=== PATIENT | female | born 1985 | race Asian ===

== ENCOUNTER → 2024-06-05 15:23 | Outpatient (REF) | payer OTHER, SELFPAY | LOC: HWRAD 15:23 | PROVIDERS: ATTENDING PHYSICIAN Chiropractor; FAMILY PHYSICIAN Family Medicine | DX: M54.2 Cervicalgia (principal); M54.6 Pain in thoracic spine | CPT/HCPCS: 72050; 72072 ==

== ENCOUNTER → 2024-12-09 06:48 | Outpatient (REF) | payer OTHER, SELFPAY | LOC: HWWDC 06:48 | PROVIDERS: ATTENDING PHYSICIAN Nurse Practitioner Family; FAMILY PHYSICIAN Family Medicine | DX: Z12.31 Encounter for screening mammogram for malignant neoplasm of breast (principal) | CPT/HCPCS: 77063; 77067 ==

== ENCOUNTER → 2024-12-18 10:16 | Outpatient (REF) | payer OTHER, SELFPAY | LOC: WDC 10:16 | PROVIDERS: ATTENDING PHYSICIAN Nurse Practitioner Family; FAMILY PHYSICIAN Family Medicine | DX: R92.8 Other abnormal and inconclusive findings on diagnostic imaging of breast (principal) | CPT/HCPCS: 77065 ==